=== PATIENT | male | born 1930 | race Caucasian/White ===

== ENCOUNTER 2016-05-23 16:30 | Outpatient (CLI) | payer OTHER, MEDICARE ==
[~2016-05-23 16:30] MED LIST: ACETAMINOPHEN325 MG PO; ALBUTEROL HFA60 DOSE IN; ASPIRIN81 M1 PO; CETIRIZINE HCL10 MG PO; DUONEB IN; FLOMAX0.4 MG PO; FLOVENT HFA220 MCG INH; FUROSEMIDE20 MG PO; GLIPIZIDE5 MG PO; HUMALOG KWI100 MG/ML SC; HYDROXYZINE HCL25 MG PO; LEVALBUTEROL IN; LEVEMIR FL100 UNIT/M SC; LISINOPRIL10 MG PO; METOPROLOL SUCC50 MG PO; MICRO-K 10 EQU10 MEQ PO; MILK OF MAGNESI10 ML PO; NOVOFINE; NOVOLOG PE100 UNITS/ SC; O2; PREDNISONE20 MG PO; SIMVASTATIN20 MG; SPIRIVA18 MCG IN; ZESTRIL2.5 MG PO
== END 2016-05-23 23:00 ==
LOC: LAB SRH 16:30
DX: R55 Syncope and collapse (principal)
CPT/HCPCS: 90004; 90047; 90074; 91320; 95059

== ENCOUNTER 2016-06-02 12:41 | Outpatient (CLI) | payer OTHER, MEDICARE ==
--- NOTE | 2016-06-09 10:45 | DIAGNOSTIC IMAGING REPORT ---
PROCEDURE: US ECHOCARDIOGRAM INDICATION: Syncope, congestive heart failure TECHNIQUE: Fair COMPARISON: None. FINDINGS: I. Chambers: Left atrium is mildly enlarged. Left atrial dimension is 48 mm in the parasternal long axis view. Left ventricle is normal in size. Left ventricular end-diastolic dimension is 52 mm and the end-systolic dimension is 40 mm. The overall left ventricular function is moderately reduced. Mild to moderate global hypokinesis is noted with an estimated LVEF of 40 a 45% noted. There are no definite segmental wall motion abnormalities identified. Mild concentric left ventricular hypertrophy is noted. Intraventricular septum is 13 mm in thickness and the post wall is 12 mm in thickness. Right ventricle and right atrium appear normal. II. Valves: Aortic valve is sclerotic. The left and right coronary cusps appear to be fused. However there is no evidence of aortic valve stenosis. Peak velocity is 1.1 meters per second. Peak gradient was 5-6 mmHg. Mean gradient was not traced. The remainder of the valves appear normal in morphology. Color Doppler interrogation reveals mild to moderate aortic valve regurgitation, mild to moderate mitral valve regurgitation, mild tricuspid regurgitation, mild pulmonic insufficiency. Estimated RV systolic pressure is normal and 32 mmHg. III. Diastolic function: Probable severe, grade 3, diastolic dysfunction is noted based on the low velocities of the mitral annulus. Elevated left atrial pressure is suspected based on E/e' ratio. IV. Miscellaneous: There is no pericardial effusion. Ascending aorta is at the upper limits of normal at 3.6 cm in diameter. IMPRESSION: 1. Normal LV size with mild to moderate global hypokinesis. Estimated LVEF 40- 45%. 2. Mild concentric left ventricular hypertrophy. 3. Probable, grade 3, diastolic dysfunction. 4. Probably elevated left atrial pressure. 5. Mild to moderate aortic valve regurgitation. 6. Mild to moderate mitral valve regurgitation. 7. Mild tricuspid regurgitation. 8. Normal right heart pressures.
== END 2016-06-02 23:00 ==
LOC: US SRH 12:41
DX: I08.0 Rheumatic disorders of both mitral and aortic valves (principal)

== ENCOUNTER 2016-09-01 11:14 | Outpatient (CLI) | payer OTHER, MEDICARE ==
--- NOTE | 2016-09-01 11:48 | DIAGNOSTIC IMAGING REPORT ---
PROCEDURE: XR CHEST 2 VIEW INDICATION: SOB TECHNIQUE: PA and lateral views. COMPARISON: Chest 04/23/2016 FINDINGS: Lungs are clear. Heart and mediastinum are normal. Thorax is normal. IMPRESSION: 1. Negative chest.
== END 2016-09-01 23:00 ==
LOC: XR SRH 11:14
DX: R06.02 Shortness of breath (principal)

== ENCOUNTER 2016-09-07 20:07 | Emergency (ER) | payer OTHER, MEDICARE ==
--- NOTE | 2016-09-07 21:36 | DIAGNOSTIC IMAGING REPORT ---
PROCEDURE: CT HEAD WITHOUT CONTRAST INDICATION: TRAUMA/INJURY fall, left frontal contusion. TECHNIQUE: Axial CT images were acquired through the head. Coronal and sagittal reformations were created. COMPARISON: 02/21/2015 FINDINGS: Mild cerebral cortical atrophy. Moderate patchy hypodensity in the periventricular and subcortical white matter. Left caudate head lacunar infarct. Left basal ganglia dystrophic calcification. No intracranial hemorrhage or extraaxial fluid collections. The ventricular system is mildly prominent. Third and fourth ventricles lie midline. There is no mass, mass effect or midline shift. The meza-white matter differentiation is normal. There is no edema. Mild to moderate calcific atherosclerosis of the intracranial internal carotid arteries. The calvarium is intact. The paranasal sinuses and mastoid air cells are normally aerated. The extracranial soft tissues and orbits are normal. IMPRESSION: 1. No CT evidence of acute intracranial process. 2. Mild atrophy and moderate chronic white matter ischemic changes, including a chronic left caudate head lacunar infarct. 3. Findings discussed with Mike at [address] scans at this facility use dose modulation, iterative reconstruction, and/or weight-based dosing when appropriate to reduce radiation dose to as low as reasonably achievable.
--- NOTE | 2016-09-07 21:44 | DIAGNOSTIC IMAGING REPORT ---
PROCEDURE: XR CHEST 2 VIEW INDICATION: CHEST PAIN TECHNIQUE: Two views. COMPARISON: 09/01/2016 and 04/23/2016 FINDINGS: The cardiomediastinal contour is stable, mildly enlarged. The central vasculature is not congested. Slight asymmetric elevation left hemidiaphragm, chronic. Low lung volumes. The visible lung jimenez are clear without focal consolidation, pleural effusion or pneumothorax. The visualized osseous structures are intact. IMPRESSION: 1. Chronic mild cardiomegaly.. 2. Clear lungs.
--- NOTE | 2016-09-07 22:40 | ED CLINICAL REPORT ---
Clinical Report - Physicians/Mid Levels [facility] [address] [place] [address] 09/07/2016 20:10 Patient: ELTON HERNANDEZ Time Seen: 20:25 Sep 07 2016. Arrived- By ambulance. Historian- EMS personnel. HISTORY OF PRESENT ILLNESS Chief Complaint: low blood glucose. This started just prior to arrival and is now gone. No loss of appetite or weight loss. (patient was found to have low blood glucose, of almost 47, Was found by his assisted living on the ground. Patient resides at assisted living, is , his glucose R, and not monitor prior to his insulin dosing, he was found on the ground, with low blood glucose, was given some sort of medication in route, medics are not very clear on this, now blood glucose increasing to greater than 100. Patient denies any symptoms. Denies any fevers or cough. Denies any chest pain.). REVIEW OF SYSTEMS No nasal congestion, difficulty breathing, chest pain, diarrhea or headache. No blackouts. All systems otherwise negative, except as recorded above. SOCIAL HISTORY Never smoker. No alcohol use. ADDITIONAL NOTES The nursing notes have been reviewed. PHYSICAL EXAM Vital Signs: 09/07/2016 20:15 BP: 136/69. HR: 56. RR: 18. O2 saturation: 96%. Temp: 97.9 F. Pain level now: 2/10. Appearance: Alert. ENT: Ears normal. Nose normal. Pharynx normal. CVS: (irreg/ irreg). Respiratory: No respiratory distress. Breath sounds normal. No decreased air movement. Abdomen: No visible injury. Soft. Skin: (abrasion to left forehead). Neuro: Oriented X 3. No alteration in mental status. No sensory deficit. LABS, X-RAYS, AND EKG Chest X-ray: (IMPRESSION: 1. Negative chest. Electronically Final signed by:Michael Hayes MD 09/01/2016 11:48:51 AM). CT Head: (IMPRESSION: 1. No CT evidence of acute intracranial process. 2. Mild atrophy and moderate chronic white matter ischemic changes, including a chronic left caudate head lacunar infarct. 3. Findings discussed with Mike at [address] scans at this facility use dose modulation, iterative reconstruction, and/or weight-based dosing when appropriate to reduce radiation dose to as low as reasonably achievable. Electronically Final signed by:Lucinda Christianson MD 09/07/2016 9:36:15 PM). Laboratory Tests: CBC w Diff: (SURESH: 09/07/2016 20:25) ( [facility] 09/07/2016 20:55) Final results Test Result Flag Units (Reference) WHITE BLOOD COUNT 10.2 K/uL (4.5-11.5) RED BLOOD COUNT 4.45 L M/uL (4.50-5.90) HEMOGLOBIN 13.2 L gm/dL (13.5-17.5) HEMATOCRIT 40.0 L % (41.0-53.0) MEAN CELL VOLUME 90 fL (80-100) MEAN CORPUSCULAR HGB 30 pg (26-34) MEAN CORPUSCULAR HGB CONC 33 g/dL (31-37) RED CELL DISTRIBUTION WIDTH 14.4 % (11.6-14.8) PLATELET COUNT 189 K/uL (150-400) NEUTROPHIL % 76.9 H % (50-75) LYMPH % 13.7 L % (25-40) MONO % 8.1 % (3-14) EOSINOPHIL % 0.7 % (0-4) BASOPHIL % 0.6 % (0-2) BMP: (SURESH: 09/07/2016 20:25) ( [facility] 09/07/2016 21:06) Final results Test Result Flag Units (Reference) GLUCOSE 176 H mg/dL (70-110) BUN 24 H mg/dL (7-18) CREATININE 2.1 H mg/dL (0.6-1.3) Estimated GFR 31.84 mL/min Estimated GFR- 38.59 mL/min Note: Persistent reduction over 3 months in eGFR<60 mL/min/1.73 m2 defines CKD. Patients with eGFR values>=60 mL/min/1.73 m2 may also have CKD if evidence ofpersistent proteinuria. Additional information may be foundat www.kidney.org. SODIUM 146 H mmol/L (136-145) POTASSIUM 3.4 L mmol/L (3.5-5.1) CHLORIDE 108 H mmol/L (98-107) CARBON DIOXIDE 26 mmol/L (21-32) CALCIUM 8.5 mg/dL (8.5-10.1) . PROGRESS AND PROCEDURES Course of Care: Patient is DNR with limited interventions, does not want anything completed. Does not recall what happened today. Keep stating "what do you want from me" "leave me alone". when I inquire with patient how he may help him, he reports he wants to feel better. I inquire about what symptoms he has, he does not want to answer questions, following asleep, very arousal reports he wants to be left alone. Some wall abrasion noted to his head. Chronic renal failure, previous laboratories of 2.6, today 2.1 creatinine.Picked up by caregiver. 09/07/2016 22:30 BP: 161/89. HR: 79. RR: 14. O2 saturation: 98%. Temp: 98.2 F. Pain level now: 0/10. 09/07/2016 21:20 BP: 158/92. HR: 93. RR: 18. O2 saturation: 98%. Pain level now: 0/10. Patient is stable. Symptoms better. Patient/family counseled. Disposition: Discharged. CLINICAL IMPRESSION Diabetes with hypoglycemia. Chronic Renal Failure. INSTRUCTIONS Warnings: Further evaluation is necessary. Prescription Medications: Please check glucose (POC) before use of insulin daily as needed. Follow-up: Follow up with your doctor as needed. (Electronically signed by Zina Mckeon P.A.-C 09/08/2016 14:16)
--- NOTE | 2016-09-07 22:40 | ED ORDER SUMMARY ---
..... Patient: ELTON HERNANDEZ OrderSheet VisitID: [id number] [address] [place] [address] 86y, M Registration Date/Time: 09/07/2016 ORDER SHEET Weight: 77.1 kg (estimated) Allergies: No Known Drug Allergy GENERAL ORDERS: Chest 2V Urgent (20:19 09/07/2016 EKoroleva P.A.-C) (Ack 20:20 AMcQuoid ER Tech1) (20:48 RFay) CBC w Diff Urgent (20:19 09/07/2016 EKoroleva P.A.-C) (Ack 20:20 AMcQuoid ER Tech1) (21:04 CBradburn R.N.) BMP Urgent (20:19 09/07/2016 EKoroleva P.A.-C) (Ack 20:20 AMcQuoid ER Tech1) (21:04 CBradburn R.N.) PCT (Procalcitonin) Urgent (20:19 09/07/2016 EKoroleva P.A.-C) (Ack 20:20 AMcQuoid ER Tech1) (21:04 CBradburn R.N.) CT Head wo Cont Urgent (20:29 09/07/2016 EKoroleva P.A.-C) (Ack 20:36 AMcQuoid ER Tech1) (20:37 CBradburn R.N.) MEDICATION ORDERS: IV FLUIDS: ORDER SHEET NOTES: [Electronically signed by Silvestre Peralta R.N. (00:49 09/08/2016)] [Electronically signed by Zina Mckeon P.A.-C (14:16 09/08/2016)] [Electronically locked/signed by Silvestre Peralta R.N. (00:49 09/08/2016)]
--- NOTE | 2016-09-07 22:40 | ED NURSING NOTES ---
Clinical Report - Nurses [facility] [address] [place] [address] 09/07/2016 20:10 Patient: ELTON HERNANDEZ TRIAGE Triage time 20:15. Chief Complaint: FALL while standing, landed on their head. --20:21 More Parnell R.N. 20:15 09/07/16. BP: 136/69 taken on the left arm, while lying. HR: 56 (regular and bradycardic). RR: 18. O2 saturation: 96% on room air. Temp: 97.9 F. Pain level now: 06/13. --20:21 More Parnell R.N. Weight: 77.1 kg estimated. Height/Length: 70 inches Estimated. BMI: 24.4. --20:15 More Parnell R.N. Medications Acetaminophen Oral 650 mg, PRN as needed. Aspirin Oral (Tablet 81 mg), daily. Cetirizine HCl Oral 10 mg, daily as needed. Flovent HFA Inhalation 220 mcg, 2x a day. Furosemide Oral 20 mg, daily. HumaLOG Subcutaneous 5 units, before meals. Levalbuterol HCl Inhalation (Nebulization Solution 1.25 mg/3mL), as needed. Levemir FlexTouch Subcutaneous (Solution Pen-injector 100 unit/mL) 13 units, bid. Lisinopril Oral 20 mg, daily. Metoprolol Succinate ER Oral (Tablet Extended Release 24 Hour 50 mg) 1 tablet, daily. NovoFine aut mis 30 Gx8mm, 3x a day. Potassium Chloride Oral 20 meq, daily. Simvastatin Oral 20 mg, daily. Spiriva HandiHaler Inhalation (Capsule 18 mcg) 1 capsule, daily. Tamsulosin HCl Oral 0.4 mg, daily. Triamcinolone Acetonide External (Cream 0.5 %), 2x a day. --20:18 More Parnell R.N. Allergies No Known Drug Allergy. --20:18 More Parnell R.N. History Historian: patient. Location of injuries: head and left elbow. This occurred just prior to arrival (LOw BG of 47 around 1900 at facility, good at this time.). PAST MEDICAL HX: Tetanus status: up-to-date. SOCIAL HX: Never smoker. No alcohol use or drug use. SELF HARM ASSESSMENT: A self harm assessment was performed. The patient answered "no" to the question "Have you recently felt down, depressed, or hopeless?", "Have you noticed less interest or pleasure in doing things?", "Do you have thoughts of harming or killing yourself?", "Are you here because you tried to hurt yourself?", "Have you ever tried to hurt yourself before today?", "Have you recently had thoughts about harming or killing others?" and "Do you have any dangerous items in your possession?". FALL RISK ASSESSMENT: Fall risk assessment completed. Risk factors identified include patient age greater than 65 years and history of fall. Fall interventions initiated. Side rails up x2. Call light in reach of patient. Instructed not to get up without assistance. --20:21 More Parnell R.N. PROBLEMS: Vomiting. Cholecystitis. Dyspnea. Hypoglycemia. Atrial Fibrillation. Dehydration. Back Pain. Prostate Disease. Diabetes Mellitus. MRSA Infection. Pneumonia. Congestive Heart Failure. Renal Insufficiency. Hyperglycemia. Immunizations. Hyperlipidemia. Hypertension. Asthma. COPD - Chronic Obstructive Pulmonary Disease. --20:19 More Parnell R.N. ADDITIONAL SURGERIES: Cynthia. Penile Implant. Shoulder Surgery. TURP - Trans Urethral Resection of Prostate. --20:19 More Parnell R.N. Interventions ID band on patient. --20:21 More Parnell R.N. PHYSICAL ASSESSMENT To room via stretcher. GENERAL / NEURO / PSYCH: Alert. Oriented X 4. Appears in no acute distress. HEENT: Pupils equal, round and reactive to light. Head: abrasion present in the left forehead. Head non-tender. RESPIRATORY: Respirations not labored. Chest nontender. Breath sounds within normal limits. CVS: Normal heart rate and rhythm. Pulses within normal limits. Capillary refill less than 2 seconds. GI / : Abdomen soft and nontender. EXTREMITIES: Extremities exhibit normal ROM. Neuro-vascular status intact to the extremity. SKIN: Abrasions noted on left elbow. --20:22 More Parnell R.N. NURSING PROGRESS NOTES Two patient identifiers checked. Call light placed in reach. Side rails up x 2. Bed placed in lowest position. Brakes of bed on. --20:22 More Parnell R.N. Patient ready for evaluation- chart flagged. --20:22 More Parnell R.N. Glucose: 146. --20:23 More Parnell R.N. The patient reports no complaints and he is calm. ( No distress at this time, denies needs, stated wants to go to bed.). GENERAL / NEURO / PSYCH: Alert. Oriented X 4. RESPIRATORY: No respiratory distress. CVS: Capillary refill less than 2 seconds. GI / : Abdomen nontender. EXTREMITIES: Neuro-vascular status intact to the extremity. Two patient identifiers checked. Call light placed in reach. Side rails up x 2. Bed placed in lowest position. Brakes of bed on. --21:21 More Parnell R.N. 21:20 09/07/16. BP: 158/92 taken on the left arm, while lying. HR: 93 (regular and normal rate). RR: 18. O2 saturation: 98% on room air. Temp: deferred. Pain level now: 0/10. --21:21 More Parnell R.N. Yaa Crystal ([facility]) - (04:25) [phone]. --21:27 McQuoid, Lolis, ER Tech1. DISPOSITION / DISCHARGE Departure time: 2237. --22:45 Silvestre Peralta R.N. 22:38 09/07/16. Condition at departure: stable. The goals identified in the patient's plan of care were met. No learning barriers present. Discharge instructions provided and reviewed with the patient. Patient verbalized understanding. Written instructions provided in Danish. Caregiver verbalized understanding. ( Elton and his caregiver verbalize understanding of all d/c instructions including need to f/u with PCP and check POC glucose before administering insulin. They have no questions and voices no concerns at this time.). The patient was discharged by the physician. He was discharged home and accompanied by Caregiver. He left the Emergency Department in a wheelchair and via private vehicle. Driving (Caregiver). DAXA COMA SCORE: Sperry Coma Scale: 15- eyes open spontaneously (4); best verbal response- oriented x 4 (5); best motor response- obeys commands (6). --00:48 Silvestre Peralta R.N. 22:30 09/07/16. BP: 161/89 (regular adult cuff) taken on the left arm, via an automated monitor, while lying. HR: 79 (normal rate). RR: 14 (regular, unlabored and normal). O2 saturation: 98% on room air. Temp: 98.2 F (oral). Pain level now: 0/10. --00:48 Silvestre Peralta R.N. Locked/Released at 09/08/2016 0:49 by Silvestre Peralta R.N.
--- NOTE | 2016-09-07 22:40 | ED ORDER SUMMARY ---
..... Patient: ELTON HERNANDEZ OrderSheet [facility] VisitID: [id number] [address] [place] [address] 86y, M Registration Date/Time: 09/07/2016 ORDER SHEET Weight: 77.1 kg (estimated) Allergies: No Known Drug Allergy GENERAL ORDERS: Chest 2V Urgent (20:19 09/07/2016 EKoroleva P.A.-C) (Ack 20:20 AMcQuoid ER Tech1) (20:48 RFay) CBC w Diff Urgent (20:19 09/07/2016 EKoroleva P.A.-C) (Ack 20:20 AMcQuoid ER Tech1) (21:04 CBradburn R.N.) BMP Urgent (20:19 09/07/2016 EKoroleva P.A.-C) (Ack 20:20 AMcQuoid ER Tech1) (21:04 CBradburn R.N.) PCT (Procalcitonin) Urgent (20:19 09/07/2016 EKoroleva P.A.-C) (Ack 20:20 AMcQuoid ER Tech1) (21:04 CBradburn R.N.) CT Head wo Cont Urgent (20:29 09/07/2016 EKoroleva P.A.-C) (Ack 20:36 AMcQuoid ER Tech1) (20:37 CBradburn R.N.) MEDICATION ORDERS: IV FLUIDS: ORDER SHEET NOTES: [Electronically signed by Silvestre Peralta R.N. (00:49 09/08/2016)] [Electronically signed by Zina Mckeon P.A.-C (14:16 09/08/2016)] [Electronically locked/signed by Silvestre Peralta R.N. (00:49 09/08/2016)]
--- NOTE | 2016-09-08 14:16 | ED MAR SUMMARY ---
..... Medication Administration Record [facility] [address] [place], [place] [id number] Patient: ELTON HERNANDEZ Visit ID: [id number] 86y, M Weight: 77.1 kg Height/Length: 70 in BMI: 24.4 ALLERGIES: No Known Drug Allergy
--- NOTE | 2016-09-08 14:16 | ED MAR SUMMARY ---
..... Medication Administration Record [facility] [address] [place], [place] [id number] Patient: ELTON HERNANDEZ Visit ID: [id number] 86y, M Weight: 77.1 kg Height/Length: 70 in BMI: 24.4 ALLERGIES: No Known Drug Allergy
--- NOTE | 2016-09-08 14:16 | ED MED RECONCILIATION SUMMARY ---
Patient: ELTON HERNANDEZ Medication Reconciliation Report [facility] VisitID: [id number] [address] [place] [address] 86y, M Registration Date/Time: 09/07/2016 Weight: 77.1 kg Height/Length: 70 in. BMI: 24.4 ALLERGIES: No Known Drug Allergy The patient's Home Medications are listed below: THE FOLLOWING MEDICATIONS NEED TO BE RECONCILED: Acetaminophen Oral 650 mg, PRN Aspirin Oral (81 mg), daily Cetirizine HCl Oral 10 mg, daily Flovent HFA Inhalation 220 mcg, 2x a day Furosemide Oral 20 mg, daily HumaLOG Subcutaneous 5 units, before meals Levalbuterol HCl Inhalation (1.25 mg/3mL) Levemir FlexTouch Subcutaneous (100 unit/mL) 13 units, bid Lisinopril Oral 20 mg, daily Metoprolol Succinate ER Oral (50 mg) 1 tablet, daily NovoFine aut mis 30 Gx8mm, 3x a day Potassium Chloride Oral 20 meq, daily Simvastatin Oral 20 mg, daily Spiriva HandiHaler Inhalation (18 mcg) 1 capsule, daily Tamsulosin HCl Oral 0.4 mg, daily Triamcinolone Acetonide External (0.5 %), 2x a day The source(s) of the original Home Medication information: Not obtained. The following Medications were given to the patient in the Emergency Department: None. The following Medications were prescribed to the patient: Please check glucose (POC) before use of insulin daily as needed. -- Zina Mckeon P.AKatieC
--- NOTE | 2016-09-08 14:16 | ED DISCHARGE INSTRUCTIONS ---
Patient: ELTON HERNANDEZ General Instructions [facility] VisitID: [id number] [place] [address] 86y, M Registration Date/Time: 09/07/2016 Diabetes with hypoglycemia. Chronic Renal Failure. INSTRUCTIONS Warnings: Further evaluation is necessary. Prescription Medications: Please check glucose (POC) before use of insulin daily as needed. Follow-up: Follow up with your doctor as needed. ADDITIONAL INFORMATION Insulin Reaction (Low Blood Sugar) You have been treated for an insulin reaction today. This occurs when insulin causes your blood sugar to gotoo low(hypoglycemia). It may happen if you take too much insulin. It can also occur from taking your usual amount of insulin, but not eating enough food due to vomiting or loss of appetite. Other causes include heavy exercise, strong emotions, missing meals, and alcohol use. Some people are sensitive to the following, which can also lower blood sugar: tobacco, caffeine and certain medicines [aspirin, Haldol (haloperidol), Darvon or Darvocet (propoxyphene), Thorazine (chlorpromazine), Inderal (propranolol), Norpace (disopyramide)]. If you suspect any of these may be affecting you, stop smoking, switch to decaf coffee, and avoid teas and sheree that contain caffeine. If you are taking any of the listed medicines, talk to your doctor about switching to another type. A class of medicine called beta blockers is used for high blood pressure, rapid heart rates and other conditions. Beta blockers may prevent the early symptoms of low blood sugar. In that case, you would not know that you were having a reaction until your blood sugar becomes dangerously low. If you are taking a beta tammie, talk to your doctor about switching to a different class. The beta tammie class includes Inderal (propranolol), Tenormin (atenolol), Lopressor (metoprolol), Corgard (nadolol), Trandateand Normodyne (labetalol) and Coreg (carvedilol). Home Care: During the next 24 hours rest and eat frequent small meals to avoid recurrence of low blood sugar. Learn the warning signals your body gives as your blood sugar starts to drop. See below. Always carry a source of fast-acting sugar with you in case you get symptoms of low blood sugar again. At the first sign of low blood sugar, eat or drink 15 to 20 grams of fast-acting sugar to raise your blood sugar. Examples include: 3 to 4 glucose tablets (found at most drugstores) 4 ounces (1/2 cup) of non-diet cola drinks (Coke, Pepsi, root beer, etc.) 4 ounces (1/2 cup) of fruit juice 2 tablespoons of raisins 1 tablespoon of honey Check your blood sugar 15 minutes after treating yourself. If it is still low, take another 15 to 20 grams of fast-acting sugar. Test again in 15 minutes. If its still low, go to an emergency room. Once your blood sugar returns to normal, eat a snack or meal to keep your blood sugar in a safe range. In the future, if you are not able to eat your normal amount at each meal due to illness or vomiting, you MUST reduce your insulin dose. Contact your doctor to ask for a temporary adjustment of your dose. If you cannot eat, and there is a delay in reaching your doctor, reduce your daily insulin dose to one-half of what you usually take. Check your blood sugar every 4-6 hours. Do this until you are able to begin eating normal amounts again. Wear a medical alert bracelet or carry a card in your wallet explaining that you are diabetic. In the event that you have a severe hypoglycemic reaction and are unable to give this information, it will help medical personnel provide proper care. Follow Up: Check and write down your blood sugar and insulin dose twice a daybefore breakfast and before dinner. Do this for the next 5 days. See your doctor during the next week to review these records. This will help determine if you need to adjust your insulin dose. For more information about diabetes, contact the [employer]. www.diabetes.org or 082-262-1236. Get Prompt Medical Attention if any of the following occur: HIGH BLOOD SUGAR: frequent urination, dizziness, drowsiness, thirst, headache, nausea or vomiting, abdominal pain, vision changes, fast breathing, confusion or loss of consciousness LOW BLOOD SUGAR: fatigue, headache, shakes, excess sweating, hunger, feeling anxious or restless, vision changes, drowsiness, weakness, confusion, or loss of consciousness You have been given the following additional information: Diabetic Insulin Reaction (Electronically signed by Zina Mckeon P.A.-C 09/08/2016 14:16)
--- NOTE | 2016-09-08 14:16 | ED MED RECONCILIATION SUMMARY ---
Patient: ELTON HERNANEDZ Medication Reconciliation Report [facility] VisitID: [id number] [address] [place] [address] 86y, M Registration Date/Time: 09/07/2016 Weight: 77.1 kg Height/Length: 70 in. BMI: 24.4 ALLERGIES: No Known Drug Allergy The patient's Home Medications are listed below: THE FOLLOWING MEDICATIONS NEED TO BE RECONCILED: Acetaminophen Oral 650 mg, PRN Aspirin Oral (81 mg), daily Cetirizine HCl Oral 10 mg, daily Flovent HFA Inhalation 220 mcg, 2x a day Furosemide Oral 20 mg, daily HumaLOG Subcutaneous 5 units, before meals Levalbuterol HCl Inhalation (1.25 mg/3mL) Levemir FlexTouch Subcutaneous (100 unit/mL) 13 units, bid Lisinopril Oral 20 mg, daily Metoprolol Succinate ER Oral (50 mg) 1 tablet, daily NovoFine aut mis 30 Gx8mm, 3x a day Potassium Chloride Oral 20 meq, daily Simvastatin Oral 20 mg, daily Spiriva HandiHaler Inhalation (18 mcg) 1 capsule, daily Tamsulosin HCl Oral 0.4 mg, daily Triamcinolone Acetonide External (0.5 %), 2x a day The source(s) of the original Home Medication information: Not obtained. The following Medications were given to the patient in the Emergency Department: None. The following Medications were prescribed to the patient: Please check glucose (POC) before use of insulin daily as needed. -- Zina Mckeon P.AKatieC
== END 2016-09-07 22:38 | disposition home or self-care (01) ==
LOC: ED SRH 20:07
DX: E11.22 Type 2 diabetes mellitus with diabetic chronic kidney disease (principal); N18.9 Chronic kidney disease, unspecified; E11.649 Type 2 diabetes mellitus with hypoglycemia without coma; Z79.4 Long term (current) use of insulin; Z91.81 History of falling
CPT/HCPCS: 90047; 93004; 95059